=== PATIENT | female | born 1970 | race American Indian/Alaskan Native ===

== ENCOUNTER 2018-08-05 14:15 | Emergency (ER) | payer OTHER ==
--- NOTE | 2018-08-05 15:51 | C.PDOC ---
History Of Present Illness 47 year old female presents to the ED for evaluation of a painful protruding lump to right anterior groin area. 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 Patient denies fever, chills, nausea, vomiting. Patient reports history of appendectomy. Time Seen by Provider: 08/05/18 15:32 Chief Complaint (Nursing): Abdominal Pain History Per: Patient History/Exam Limitations: no limitations Onset/Duration Of Symptoms: Hrs Current Symptoms Are (Timing): Still Present Quality Of Discomfort: "Pain" Associated Symptoms: denies: Fever, Chills, Nausea, Vomiting Past Medical History Reviewed: Historical Data, Nursing Documentation, Vital Signs Vital Signs: Last Vital Signs Temp 98.4 F 08/05/18 14:50 Pulse 91 H 08/05/18 14:50 Resp 20 08/05/18 14:50 BP 121/86 08/05/18 14:50 Pulse Ox 99 08/05/18 14:50 - Medical History PMH: No Chronic Diseases Surgical History: Appendectomy Family History: States: Unknown Family Hx - Social History Hx Alcohol Use: Yes Hx Substance Use: No - Immunization History Hx Tetanus Toxoid Vaccination: No Hx Influenza Vaccination: No Hx Pneumococcal Vaccination: No Review Of Systems Constitutional: Negative for: Fever, Chills Gastrointestinal: Positive for: Other (painful protruding lump to right anterior groin region ). Negative for: Nausea, Vomiting Physical Exam - Physical Exam Appears: Non-toxic, No Acute Distress Skin: Normal Color, Warm, Dry, Other (large right lower abdominal scar ) Head: Atraumatic, Normacephalic Eye(s): bilateral: Normal Inspection Oral Mucosa: Moist Neck: Supple Chest: Symmetrical, No Deformity, No Tenderness Cardiovascular: Rhythm Regular, No Murmur Respiratory: Normal Breath Sounds, No Rales, No Rhonchi, No Wheezing Extremity: Normal ROM, Capillary Refill (less than 2 seconds ), Other (3cm protruding tender mass at right femoral triangle with bowel sounds that are consistent with a loop of bowel ) Pulses: Left Femoral: Normal, Right Femoral: Normal Neurological/Psych: Oriented x3, Normal Speech, Normal Cognition ED Course And Treatment O2 Sat by Pulse Oximetry: 99 (on RA) Pulse Ox Interpretation: Normal Progress Note: Gentle reduction performed with patient in supine position and with steady pressure. Hernia reduced about one minute later with significant relief. Patient is complaining of mild, persistent and dul aching pain. Ice pack and motrin PO given. Medical Decision Making Medical Decision Making: easily reduced R femoral hernia defect 3 cm's pt educated to reduce on her own pending outpatient elective repair Disposition Doctor Will See Patient In The: Office Counseled Patient/Family Regarding: Studies Performed, Diagnosis - Disposition Referrals: [facility] [Outside] [facility] [Outside] [facility] [Outside] Se Watts MD [Staff Provider] - Disposition: HOME/ ROUTINE Disposition Time: 15:50 Condition: GOOD Additional Instructions: if hernia defect occurs again: lay supine with feet up on a sofa gentle pressure to the R femoral hernia area hernia will reduce. If it does NOT reduce, seed urgent eval Call Dr. Tomlin- General Surgery- to make appointment for elective surgical repair Instructions: Inguinal and Femoral (Groin) Hernias Forms: [facility] (Georgian), Work Excuse - Clinical Impression Clinical Impression: Femoral hernia of right side - Scribe Statement The provider has reviewed the documentation as recorded by the Scribe (Stefany Taylor) Provider Attestation: All medical record entries made by the Scribe were at my direction and personally dictated by me. I have reviewed the chart and agree that the record accurately reflects my personal performance of the history, physical exam, medical decision making, and the department course for this patient. I have also personally directed, reviewed, and agree with the discharge instructions and disposition.
[2018-08-05 16:23] VITALS: BP 132/86; PULSE 87; RESP 16; TEMP 97.9
[2018-08-05 19:04] VITALS: O2SAT 99
== END 2018-08-05 16:22 | disposition home or self-care (01) ==
LOC: C.ER 14:15
DX: K41.90 Unilateral femoral hernia, without obstruction or gangrene, not specified as recurrent (principal)